=== PATIENT | male | born 1990 | race Caucasian/White ===

== ENCOUNTER 2016-06-24 04:37 | Emergency (ER) | payer MEDICAID, OTHER ==
[~2016-06-24] VITALS: Ht 172.7 cm; Wt 99.5 kg
[2016-06-24 04:40] VITALS: Ht 172.7 cm; Wt 99.5 kg
[2016-06-24] MEDS ORDERED: HYDR-906 PO (04:53)
[2016-06-24] MEDS ORDERED: HYDROCODONE/APAP (10/325) TAB PO ONE (05:00)
[2016-06-24 05:03] VITALS: BP 138/66; PULSE 76; RESP 20; TEMP 99.5
--- NOTE | 2016-06-24 05:16 | ERD ---
ER Documentation Chief Complaint Date/Time DATE: 06/24/16 TIME: 05:10 Chief Complaint l knee pain from injury was at [facility] yesterday but didnt get pain meds HPI 25-year-old male presents to emergency department for complaints of left knee pain for 2 days. Patient had an injury 2 days ago, twisted the left knee. Patient had radiographs done yesterday was in another hospital, was given ibuprofen for pain. Patient states that ibuprofen does not help. Patient described the pain as throbbing pain, 8/10 scale, is worse upon movement. Patient did not take any medications elevated symptoms. Patient denies any numbness or tingling. Patient denies any deformity. Patient uses crutches and a knee immobilizer. ROS All systems reviewed and are negative except as per history of present illness. Medications Home Meds Active Scripts Hydrocodone/Acetaminophen (Pinckard 5-325 Tablet) 1 Each Tablet, 1 TAB PO Q6H Y for SEVERE PAIN LEVEL 7-10, #20 TAB Prov:DAVID MORTON NP 06/24/16 Allergies Allergies: Coded Allergies: No Known Allergy (Unverified , 06/24/16) PMhx/Soc Medical and Surgical Hx: pt denies Medical Hx, pt denies Surgical Hx History of Surgery: No Anesthesia Reaction: No Hx Neurological Disorder: No Hx Respiratory Disorders: No Hx Cardiac Disorders: No Hx Psychiatric Problems: No Hx Miscellaneous Medical Probl: No Hx Alcohol Use: No Hx Substance Use: No Hx Tobacco Use: No Smoking Status: Never smoker FmHx Family History: No coronary disease, No diabetes, No other Physical Exam Vitals Vital Signs Date Time Temp Pulse Resp B/P Pulse Ox O2 Delivery O2 Flow Rate FiO2 06/24/16 05:03 99.5 76 20 138/66 98 06/24/16 04:40 98.2 69 18 135/68 97 Physical Exam GENERAL: The patient is well developed and appropriate for usual state of health, in no apparent distress. CHEST: Clear to auscultation bilaterally. There are no rales, wheezes or rhonchi. HEART: Regular rate and rhythm. No murmurs, clicks, rubs or gallops. No S3 or S4. ABDOMEN: Soft, nontender and nondistended. Good bowel sounds. No rebound or guarding. No gross peritonitis. No gross organomegaly or masses. No Ochoa sign or McBurney point tenderness. BACK: No midline or flank tenderness. EXTREMITIES: Noted left knee to be edematous, with some ecchymosis noted, no deformity noted, tender on palpation. Equal pulses bilaterally. Full range of motion of other joints of the body. Grossly neurovascularly intact. NEURO: Alert and oriented. Cranial nerves 2-12 intact. Motor strength in all 4 extremities with 5/5 strength. Sensation grossly intact. Normal speech and gait. SKIN: There is no apparent rash or petechia. The skin is warm and dry. HEMATOLOGIC AND LYMPHATIC: There is no evidence of excessive bruising or lymphedema. No gross cervical, axillary, or inguinal lymphadenopathy. Results 24 hrs Current Medications Medications (Trade) Dose Ordered Sig/Chuy Route PRN Reason Start Time Stop Time Status Last Admin Dose Admin Acetaminophen/ Hydrocodone Bitart (Pinckard (10/325)) 1 tab ONCE ONCE PO 06/24/16 05:00 06/24/16 05:01 DC 06/24/16 05:03 Patient was given medication for pain here in emergency department, after treatment, patient verbalized feeling much better. Patient's pain is improved. Procedures/MDM Medical Decision Making: Patient's pain is most likely consistent with a left knee sprain, possible ligament injury.. There is no suspicion for neurovascular compromise. Patient has intact sensation and circulation of the affected extremity. There is low suspicion for septic arthritis. Patient does not have any fever. Radiology exams done yesterday at another hospital was negative for any fractures as per patient. Repeat radiology exam is not indicated at this time. Disposition: Home. Patient is given prescription for Pinckard for severe pain, continue ibuprofen for mild to moderate, request MRI with primary care doctor. Patient was advised to elevate the affected area and apply ice on affected area. Patient was advised that if symptoms are worse, numbness, tingling, high fever, unable to move joint, worsening symptoms, to return to emergency department immediately. Otherwise, patient is advised to follow up with the primary care doctor in 5-7 days for reevaluation of symptoms. Departure Diagnosis: Primary Impression: Knee pain Laterality: left Chronicity: acute Qualified Code: M25.562 - Acute pain of left knee Condition: Stable Patient Instructions: Knee Pain, Uncertain Cause Referrals: [facility] Usted se jones hecho un examen mdico de control que le indica que no est en carolina condicin que requiera tratamiento urgente en el Departamento de Emergencia. Un estudio ms profundo y el tratamiento de elena condicin pueden esperar sin ningn riesgo hasta que usted sea atendida/o en el consultorio de elena mdico o carolina cl linda. Es responsabilidad suya arreglar carolina dahiana para el seguimiento del sara. MANEJO DE CONDICIONES NO URGENTES EN EL FUTURO 1) Si usted tiene un mdico de atencin primaria: Usted debera llamar a elena mdico de atencin primaria antes de venir al departamento de emergencia. Despus de las horas de consultorio, elena doctor o elena asociado/a est disponible por telfono. El mdico o enfermero de maria d en el servicio telefnico puede asesorarle por mahesh medio para atender el problema, o sara contrario se puede programar carolina dahiana. 2) Si usted no tiene un mdico de atencin primaria: Llame al mdico o clnica de referencia que aparece abajo jaziel las horas de consultorio para hacer carolina dahiana para que le vean. CLINICAS: [facility] [phone] [facility] [phone] [address] [facility] [phone] [facility]. [facility] [phone] [facility]. [place] [id number] [phone] [facility]. [phone] [address] [facility] () Usted se jones hecho un examen mdico de control que le indica que no est en carolina condicin que requiera tratamiento urgente en el Departamento de Emergencia. Un estudio ms profundo y el tratamiento de elena condicin pueden esperar sin ningn riesgo hasta que usted sea atendida/o en el consultorio de elena mdico o carolina cl linda. Es responsabilidad suya arreglar carolina dahiana para el seguimiento del sara. MANEJO DE CONDICIONES NO URGENTES EN EL FUTURO 1) Si usted tiene un mdico de atencin primaria: Usted debera llamar a elena mdico de atencin primaria antes de venir al departamento de emergencia. Despus de las horas de consultorio, elena doctor o elena asociado/a est disponible por telfono. El mdico o enfermero de maria d en el servicio telefnico puede asesorarle por mahesh medio para atender el problema, o sara contrario se puede programar carolina dahiana. 2) Si usted no tiene un mdico de atencin primaria: Llame al mdico o condado institucions de referencia que aparece abajo jaziel las horas de consultorio para hacer carolina dahiana para que le vean. SI USTED NO PUEDE PAGAR PARA YOLIE UN MEDICO puede ir a: [facility] [id number] [place] [address] [facility] [address] [place] [address] [facility] [address] [place] [address] [address]OV [facility] [address] [place] [address] [facility] Ur[facility] Care 7 a.m.- 11 p.m. Every Day of the Week NO APPOINTMENT OR AUTHORIZATION NEEDED CUISMARILYN,DAVID Coello NP June 24, 2016 05:16
== END 2016-06-24 05:18 | disposition home or self-care (01) ==
LOC: FTE 04:37
DX: M25.562 Pain in left knee (principal); Z04.3 Encounter for examination and observation following other accident
CPT/HCPCS: Z7502; Z7610; 99283